=== PATIENT | male | born 1990 | race Caucasian/White ===

== ENCOUNTER 2018-05-15 19:51 | Inpatient (IN) | payer OTHER ==
[~2018-05-15] VITALS: Ht 172.7 cm; Wt 81.6 kg
[2018-05-15 19:53] VITALS: BP 128/73
[2018-05-15] MEDS ORDERED: HYDROmorphone PFS 2 MG/ML SYR IVP ONE ×3 (20:15→21:50)
[2018-05-15] MEDS ORDERED: diphenhydrAMINE 50 MG/ML VIAL IVP ONE ×3 (20:15→22:30)
[2018-05-15] MEDS ORDERED: NACL 0.9% 1,000 ML IV ONE (20:15)
--- NOTE | 2018-05-15 20:40 | NUR ---
PT BIBA FOR CHIEF C/O GENERALIZED PAIN ALL OVER. PT STATES, " IM HAVING A SICKLE CELL CRISIS." PT HAS PMH OF SICKLE CELL ANEMIA AND R HIP REPLACEMENT. PT AAOX4 FOLLOWING COMMANDS. PT NSR ON MONITOR 70-80S NO EDEMA NOTED. +2 PULSES UPPER AND LOWER EXTREMTIES. LUNGS CLEAR EVEN AND UNLABORED. ABD SOFT NON DISTENDED. PT VOIDING CLEAR YELLOW URINE. PT HAS STITICHES FROM PREVIOUS MEDIPORT TO R UPPER CHEST. PT HAS NEW MEDIPORT TO L UPPER CHEST NO S/S OF DISTRESS NOTED. WILL CONTINUE TO MONITOR.
--- NOTE | 2018-05-15 20:40 | NUR ---
PT ARRIVED VIA GURNEY FROM AMBULANCE TO ED BED 01
--- NOTE | 2018-05-15 20:45 | NUR ---
[facility] TO [facility] FOR IV MEDS. VSS. NO ACUTE DISTRESS NOTED
[2018-05-15 21:02] LABS: BASOPHILS % (AUTO) 0.4 % (0.0-2.0); EOSINOPHILS # (AUTO) 0.2 K/uL (0-0.4); EOSINOPHILS % (AUTO) 1.6 % (0.0-4.0); HEMATOCRIT 30.1 % (36-52); LYMPHOCYTES # (AUTO) 3.5 K/uL (2.0-11.5); LYMPHOCYTES % (AUTO) 30.7 % (20.5-51.1); MEAN CORPUSCULAR HEMOGLOBIN 40 pg (27-31); MEAN CORPUSCULAR HGB CONC 33 g/dL (33-37); MEAN CORPUSCULAR VOLUME 118.8 fL (80-94); MONOCYTES # (AUTO) 1.9 K/uL (0.8-1.0); MONOCYTES % (AUTO) 17.1 % (1.7-9.3); NEUTROPHILS # (AUTO) 5.7 K/uL (1.8-7.7); NEUTROPHILS % (AUTO) 50.2 % (42.2-75.2); PLATELET COUNT (AUTO) 415 K/uL (140-450); RED BLOOD CELL COUNT(AUTO) 2.53 MIL/uL (4.20-6.10); RED CELL DISTRIBUTION WIDTH 24.2 % (11.6-13.7); WHITE BLOOD COUNT (AUTO) 11.3 K/uL (4.8-10.8)
[2018-05-15] MEDS ORDERED: PIPERACILLIN/TAZOBACTAM 3.375 GM in DEXTROSE 5% 50 ML IV ONE (21:50)
[2018-05-15] MEDS ORDERED: PIPERACILLIN/TAZOBACTAM 3.375 GM VIAL IV ONE (22:07)
[2018-05-15] MEDS ORDERED: DEXT 5% / NACL 0.45% 1,000 ML IV SCH (22:18)
[2018-05-15] MEDS ORDERED: ACETAMINOPHEN 325 MG TAB PO PRN (22:20)
[2018-05-15] MEDS ORDERED: LORazepam 2 MG/ML VIAL IVP PRN (22:20)
[2018-05-15] MEDS ORDERED: ONDANSETRON 4 MG/2 ML VIAL IVP PRN (22:20)
[2018-05-15] MEDS ORDERED: HYDROcodone/APAP 5/325 MG 1 TAB TAB PO PRN (22:20)
[2018-05-15] MEDS ORDERED: HYDROmorphone 1 MG/ML AMP IVP PRN (22:20)
--- NOTE | 2018-05-15 22:45 | NUR ---
Patient will be admitted to care of DR. DOWNS . Admited to TELEMETRY. Will go to room 112A. Belongings list completed. LISAIE Report to SAADIA SÁNCHEZ.
--- NOTE | 2018-05-15 23:08 | NUR ---
RECEIVED FROM ER PER LUIS AWAKE BUT SLEEPY. DX. OF SICKLE CELL CRISIS. ABLE TO VERBALIZE NEEDS WELL. ROM X 4. INDEPENDENT. CLEAR SPEECH. SKIN INTACT. NO SOB. AFEBRILE. CARE PLANS FOR THE NIGHT DISCUSSED WITH HIM. CALL LIGHT WITH IN REACH. DENIES PAIN AT THIS TIME. MEDICATED IN ER PRIOR TRANSPORTING ON THE FLOOR. SKIN INTACT.
[2018-05-15] MEDS ORDERED: ACET-5636 PO (23:45)
[2018-05-15] MEDS ORDERED: VITA1TAB44 PO (23:46)
[2018-05-15] MEDS ORDERED: HYDR500C PO (23:47)
[2018-05-16 00:08] VITALS: BP 112/70
--- NOTE | 2018-05-16 00:27 | NUR ---
PT. AT THIS TIME IS SLEEPING. CALL LIGHT WITH IN REACH. ON CARDIAC TELEMETRY MONITORING.
[2018-05-16] MEDS: ALBUTEROL 0.083% 2.5 MG/3 ML NEBU INH SCH ×4 (01:00→18:35)
--- NOTE | 2018-05-16 01:52 | NUR ---
PATIENT REFUSED HHNTX AT THIS TIME. PT HAS NO SOB. BS ARE CLEAR. SATS ARE 100% ON ROOM AIR
[2018-05-16 03:16] VITALS: BP 113/65
[2018-05-16] MEDS: HYDROmorphone PFS 2 MG/ML SYR IVP PRN ×8 (03:34→23:23)
--- NOTE | 2018-05-16 06:37 | NUR ---
SLEEPING WELL THIS SHIFT. CALL LIGHT WITH IN REACH AT ALL TIMES. MEDICATED WITH PAIN RELIEVER PRN FOR SICKLE CELL DSE.
--- NOTE | 2018-05-16 07:10 | NUR ---
RECEIVED REPORT FROM THE SHIP CONSTRUCTION TEACHER NURSE AT BEDSIDE FOR CONTINUITY OF CARE. PT IS AWAKE AND ORIENTED. INTRODUCED MYSELF AND UPDATED THE BOARD. PT IS STATING HE NEEDS TO SPEAK WITH THE DR REGARDING HIS PAIN MANAGEMENT. PT IS AMBULATORY, SKIN INTACT. PORT A CATH ON CHEST. WILL CONTINUE TO MONITOR PT.
[2018-05-16 08:00] VITALS: BP 118/66
[2018-05-16 08:02] LABS: BARBITURATE, URINE NEG. ng/ml (NEG <=200); BENZODIAZEPINE, URINE NEG. ng/mL (NEG <=200); CANNABINOID, URINE NEG. ng/mL (NEG <=50); COCAINE, URINE NEG. ng/mL (NEG <=300); OPIATE, URINE NEG. ng/mL (NEG <=2000); PHENCYCLIDINE SCREEN,URINE NEG. ng/mL (NEG <=25)
--- NOTE | 2018-05-16 08:17 | NUR ---
V/S WITHIN NORMAL RANGE. PAIN LEVEL AT 8/10. HE WISHES TO SPEAK TO THE DR. EXPLAINED TO PT THAT THE MD COMES IN UNSCHEDULED, BUT SHE WILL BE IN. PT VERBALIZED UNDERSTANDING. HE IS EATING BREAKFAST. NO SIGNS OF DISTRESS. WILL CONTINUE TO MONITOR PT.
[2018-05-16 08:30] LABS: APPEARANCE,URINE CLEAR (CLEAR); BILIRUBIN,URINE NEGATIVE (NEGATIVE); BLOOD, URINE NEGATIVE (NEGATIVE); COLOR,URINE YELLOW (YELLOW); LEUKOCYTE ESTERASE ,URINE NEGATIVE (NEGATIVE); NITRITE, URINE NEGATIVE (NEGATIVE); PH,URINE 6.5 (5.0-9.0); UGLUCOSE NEGATIVE (NEGATIVE)
[2018-05-16 08:31] LABS: RBC,URINE 0-5 (RARE) /HPF (0-5); WBC,URINE 0-5 (RARE) /HPF (0-5)
[2018-05-16 08:34] LABS: MAGNESIUM 1.9 mg/dL (1.8-2.4)
--- NOTE | 2018-05-16 08:40 | NUR ---
PATIENT HAS BEEN SCREENED AND CATEGORIZED LOW NUTRITION RISK. PATIENT WILL BE SEEN WITHIN 7 DAYS OF ADMISSION. 05/22/[address]
--- NOTE | 2018-05-16 08:42 | NUR ---
ADMINISTERED DILAUDID REQUESTED. PT TOLERATED WELL. PER PT, PT IS ALLERGIC TO ATIVAN. ADDED TO HIS ALLERGY LIST. D/C'D ZOFRAN AND ATIVAN FROM MED LIST. NOTIFIED PHARMACY. PHARMACIST AWARE. STILL ASKING ABOUT MD. WILL CONTINUE TO MONITOR PT.
[2018-05-16 10:02] LABS: ANION GAP 13.4 (8-16); CARBON DIOXIDE 26.8 mmol/L (21-32); CREATININE 0.7 mg/dL (0.7-1.3); POTASSIUM 4.2 mmol/L (3.5-5.1)
--- NOTE | 2018-05-16 10:17 | NUR ---
CM NOTE PER [employer]UB MEMBERSHIP SALES AGENT FELISA, REVIEWS SHOULD BE SENT TO [facility]OTH [facility] AND [facility]. PER CM LAISHA OF [facility] PH# [phone] EXT [phone], THEY ALSO WANT REVIEWS FAXED TO THEM. INITIAL REVIEW, ADMIT ORDER, H&P, IMAGING, LABS, MEDICATION LIST FAXED TO [facility] [phone] PH# [phone] ROSY BECKER EXT [phone]. INITIAL REVIEW AND H&P FAXED TO [facility] [phone] PH# [phone] CM LAISHA EXT *[phone].
[2018-05-16] MEDS ORDERED: ENOXAPARIN 40 MG/0.4 ML SYR SUBQ SCH (10:31)
--- NOTE | 2018-05-16 11:20 | NUR ---
PAGED PULMO GROUP TO CLARIFY WHO IS THE MD FOR THIS PT, DR DOWNS OR TRINA. PAGED DR DOWNS.
[2018-05-16] MEDS: NACL 0.9% 1,000 ML IV SCH ×2 (11:24→18:39)
--- NOTE | 2018-05-16 11:25 | NUR ---
DR DOWNS CALLED AND GAVE ORDERS FOR FLUIDS. WILL BE IN TO SEE PT.
--- NOTE | 2018-05-16 11:27 | NUR ---
ADMINISTERED LOVENOX AND IVF. PT TOLERATED WELL. ASKED ABOUT MD. NOTIFIED PT THAT I RECEIVED FLUID ORDERS BUT NO WORD ON WHAT TIME MD WILL BE HERE.
[2018-05-16 12:00] VITALS: BP 106/58
--- NOTE | 2018-05-16 13:00 | NUR ---
DR DOWNS IS HERE TO SEE PT. PER ORDER, CHANGE DILAUDID TO 1MG Q 2HRS. NO BENADRYL D/T LOW HR AND LOW BP.
--- NOTE | 2018-05-16 14:06 | NUR ---
PT WOULD LIKE TO CHANGE DRSLola NOTIFIED CHARGE NURSETERENCE. PT WOULD LIKE TO TALK TO CHARGE NURSE. TERENCE NOTIFLUDY.
--- NOTE | 2018-05-16 14:36 | NUR ---
ADMINISTERED 1MG OF DILAUDID. TOLERATED WELL. WILL CONTINUE TO MONITOR PT.
--- NOTE | 2018-05-16 15:00 | NUR ---
TERENCE, CHARGE NURSE SPOKE TO PT RE SWITCHING MD. PT WILL NEED TO SPEAK TO DR DOWNS FOR RELEASE. CALLED AND PAGED DR DOWNS. AWAITING HER CALL.
[2018-05-16 16:00] VITALS: BP 138/45
--- NOTE | 2018-05-16 16:35 | NUR ---
VS WITHIN NORMAL RANGE. ADMINISTERED DILAUDID REQUESTED AND ORDERED. REQUESTED A TURKEY SANDWICH W/ MUSTARD. WILL CONTINUE TO MONITOR PT.
--- NOTE | 2018-05-16 18:35 | NUR ---
PATIENT REFUSED HHN TRATMENT, STATED HE DOES NOT NEED THEM AND NO SIGNS OF SOB
--- NOTE | 2018-05-16 19:05 | NUR ---
ENDORSED PT TO THE TREASURER NURSE AT BEDSIDE FOR CONTINUITY OF CARE. PT IS IN STABLE CONDITION.
--- NOTE | 2018-05-16 19:05 | NUR ---
RECEIVED REPORT FROM PRISCILLA SÁNCHEZ DAYSHIFT NURSE AT BEDSIDE FOR CONTINUITY OF CARE, PT IN STABLE CONDITION.
[2018-05-16 20:00] VITALS: BP 107/62
--- NOTE | 2018-05-16 20:00 | NUR ---
PT SITTING UP IN LOW BED SIDE RAILS UP X2 , ALEXANDR CATH LOCATED ON LEFT UPPER CHEST FLUSHED PATENT AND RUNNING N/S AT 125MLS/HR. V/S FOLLOWS T 98.7 P 76 R 18 B/P 107/62 02 %94.
--- NOTE | 2018-05-16 21:00 | NUR ---
PT IN BED WITH C/O OF 9/10 STABBING GENERALIZED PAIN, GIVEN PRN DILAUDID IVP.
--- NOTE | 2018-05-16 22:00 | NUR ---
POSITIVE EFFECT OF DILAUDID NOTED PT RESTING COMFORTABLY IN BED. PORT-A-CATH FLUSHED PATENT N/S RUNNING AT 125. CALL KELLY IN EACH. PT URINATED OVER 1000MLS OF DANIELA URINE.
--- NOTE | 2018-05-16 23:30 | NUR ---
PT C/O 02/24 STABBING GENERALIZED PAIN FROM DX OF SICKLE CELL. PT GIVEN PRN DILAUDID IVP.
[2018-05-17] VITALS: BP 110/73
[2018-05-17] MEDS: ALBUTEROL 0.083% 2.5 MG/3 ML NEBU INH SCH ×4 (00:14→19:00)
--- NOTE | 2018-05-17 00:14 | NUR ---
PATIENT REFUSED HHN TREATMENT. NO RESP. DISTRESS OR SOB NOTED
--- NOTE | 2018-05-17 01:00 | NUR ---
POSITIVE EFFECT OF DIALUDID PRN PT RESTING IN BED NO S/S OF PAIN OR DISTRESS NOTED. BED LOW SIDE RAILS UP X2 AND CALL KELLY IN REACH.
[2018-05-17] MEDS: HYDROmorphone PFS 2 MG/ML SYR IVP PRN ×4 (02:12→11:52)
[2018-05-17] MEDS: NACL 0.9% 1,000 ML IV SCH ×3 (02:24→20:22)
--- NOTE | 2018-05-17 02:30 | NUR ---
PT AWOKEN BY STABBING PAIN FROM SICKLE SELL ANEMIA, GIVEN PRN DILAUDID IVP. N/S FLUIDS REPLACED. PT HAD VOIDED ANOTHER 750MLS.
[2018-05-17 04:00] VITALS: BP 105/63
--- NOTE | 2018-05-17 07:10 | NUR ---
GAVE REPORT AT BEDSIDE FOR CONTINUITY OF CARE, PT IN STABLE CONDITION.
--- NOTE | 2018-05-17 07:11 | NUR ---
RECEIVED REPORT FROM BRIDGE CREW MEMBER NURSE AT BEDSIDE FOR CONTINUITY OF CARE. PT IS AWAKE AND ORIENTED. EXTERNAL AUDITOR WAS HERE TO DRAW BLOOD. PT'S V/S WITHIN NORMAL LIMITS. REINTRODUCED MYSELF AND UPDATED THE BOARD. PT C/O PAIN. WILL BE BACK LATER TO GIVE, NOT TIME YET.
--- NOTE | 2018-05-17 07:24 | NUR ---
PATIENT REFUSED PROVENTIL Q6 TX. PATIENT RESTING COMFORTABLY AND VERBALIZED FEELING NO SOB OR DISTRESS. VITALS STABLE: O2 SAT 98% ON RA, PULSE 64, DIMINISHED BREATH SOUNDS BUT CLEAR OVER RUL.
--- NOTE | 2018-05-17 07:55 | NUR ---
ADMINISTERED LOVENOX AND DILAUDID. PT TOLERATED WELL. BREAKFAST IS HERE. WILL CONTINUE TO MONITOR PT.
[2018-05-17] MEDS: ENOXAPARIN 40 MG/0.4 ML SYR SUBQ SCH (07:56)
[2018-05-17 08:00] VITALS: BP 97/45
[2018-05-17 08:15] LABS: BASOPHILS % (AUTO) 0.3 % (0.0-2.0); EOSINOPHILS # (AUTO) 0.2 K/uL (0-0.4); EOSINOPHILS % (AUTO) 2.5 % (0.0-4.0); HEMATOCRIT 30.8 % (36-52); HEMOGLOBIN 10.7 g/dL (12.0-18.0); LYMPHOCYTES # (AUTO) 1.9 K/uL (2.0-11.5); LYMPHOCYTES % (AUTO) 27.1 % (20.5-51.1); MEAN CORPUSCULAR HEMOGLOBIN 41 pg (27-31); MEAN CORPUSCULAR HGB CONC 35 g/dL (33-37); MEAN CORPUSCULAR VOLUME 117.7 fL (80-94); MONOCYTES # (AUTO) 1.5 K/uL (0.8-1.0); NEUTROPHILS # (AUTO) 3.4 K/uL (1.8-7.7); NEUTROPHILS % (AUTO) 48.1 % (42.2-75.2); RED BLOOD CELL COUNT(AUTO) 2.61 MIL/uL (4.20-6.10); RED CELL DISTRIBUTION WIDTH 22.9 % (11.6-13.7)
[2018-05-17 08:21] LABS: PLATELET COUNT (AUTO) 392 K/uL (140-450)
[2018-05-17 08:35] LABS: ALBUMIN 3.8 g/dL (3.4-5.0); CARBON DIOXIDE 29.1 mmol/L (21-32); CREATININE 0.6 mg/dL (0.7-1.3); POTASSIUM 4.1 mmol/L (3.5-5.1); TOTAL BILIRUBIN 2.5 mg/dL (0.0-1.0)
--- NOTE | 2018-05-17 08:55 | NUR ---
CM NOTE CONCURRENT REVIEW FAXED TO [facility] [phone] PH# [phone] CM ROSITA EXT [phone] AND TO [facility] [phone] PH# [phone] CM LAISHA EXT *[phone]. PATIENT HAS BEEN SET UP FOR OUTPATIENT FF UP APPOINTMENT WITH PCP DR. GUERLINE ARGUELLO AT THE CLINIC WHERE PATIENT GOES TO IN [address] [place] [address] PH# [phone]. PRISCILLA SÁNCHEZ AWARE.
--- NOTE | 2018-05-17 10:32 | NUR ---
PT IS SLEEPING. NO SIGNS OF DISTRESS. WILL CONTINUE TO CONTINUE TO MONITOR.
--- NOTE | 2018-05-17 11:55 | NUR ---
PT FINALLY AWAKE D/T V/S. PER PT, HE DIDN'T SLEEP WELL LAST NIGHT. ADMINISTERED DILAUDID AND NEW IVF. WILL CONTINUE TO MONITOR PT.
[2018-05-17 12:00] VITALS: BP 123/47
--- NOTE | 2018-05-17 12:20 | NUR ---
PATIENT REFUSED TX. VERBALIZED FEELING NO SOB. VITALS: 98% ON RA, PULSE 63, RATE 18, CLEAR BREATH SOUNDS.
--- NOTE | 2018-05-17 12:41 | NUR ---
DR DOWNS IS HERE TO SEE PT. PER , PT NEEDS TO AMBULATE. P/T ORDER IN PLACE. CONTINUE WITH DILAUDID 1MG Q2HR. ALSO ORDERED XRAYS BACK AND PELVIS. WILL CONTINUE TO MONITOR PT.
[2018-05-17] MEDS ORDERED: oxyCODONE/APAP 5/325 MG 1 TAB TAB PO PRN (12:45)
--- NOTE | 2018-05-17 13:20 | NUR ---
PER CHARGE NURSE, P/T HERE TO ASSESS PT. PT REFUSED TO GET UP W/ P/T WITHOUT PAIN MEDS. PAIN MEDS NOT DUE OF YET. PT TOLD P/T TO COME BACK. RADIOLOGY IS HERE TO TAKE PT FOR XRAYS. PT REFUSED. TOLD THEM TO COME BACK LATER AFTER HE HAD HIS PAIN MED.
--- NOTE | 2018-05-17 14:02 | NUR ---
ADMINISTERED DILAUDID. NOTIFIED PT THAT P/T IS WAITING AND RADIOLOGY WILL BE HERE HERE IN 10 MIN. PT VERBALIZED UNDERSTANDING. P/T WAITING BY THE DOOR.
--- NOTE | 2018-05-17 14:15 | NUR ---
P/T EVALUATION DONE. RADIOLOGY TOOK PT IN WHEELCHAIR FOR XRAY.
[2018-05-17 16:00] VITALS: BP 115/55
[2018-05-17] MEDS: HYDROmorphone 1 MG/ML AMP IVP PRN ×4 (16:15→22:39)
--- NOTE | 2018-05-17 16:17 | NUR ---
OFFERED THE PERCOCET FIRST BEFORE THE DILAUDID. PER PT, IT ONLY WORKS FOR MILD PAIN. PT NEEDS THE DILAUDID. PAIN 02/24. ADMINISTERED DILAUDID. PT TOLERATED WELL. WILL CONTINUED TO MONITOR PT.
--- NOTE | 2018-05-17 18:15 | NUR ---
ADMINISTERED DILAUDID REQUESTED. PAIN LEVEL AT 8/10. WILL CONTINUE TO MONITOR PT.
--- NOTE | 2018-05-17 19:20 | NUR ---
ENDORSED PT TO THE DISPATCH OFFICER NURSE AT BEDSIDE FOR CONTINUITY OF CARE. PT IS IN STABLE CONDITION.
--- NOTE | 2018-05-17 19:21 | NUR ---
REPORT RECEIVED FROM AM NURSE AT BEDSIDE. PT IN STABLE CONDITION. AAOX4. NO COMPLAINTS OF PAIN. NO SOB. INTRODUCED SELF TO PT. BOARD UPDATED. IV SITE L CHEST MEDIPORT RUNNING NS@125ML/HR PATENT AND INTACT. SKIN WARM, DRY, AND INTACT WITH NO OPEN WOUNDS. PT AMBULATORY. BED LOCKED IN LOW POSITION. CALL KELLY WITHIN REACH. SAFETY PRECAUTIONS IN PLACE.
[2018-05-17 20:00] VITALS: BP 118/39
--- NOTE | 2018-05-17 20:20 | NUR ---
DILAUDID GIVEN FOR 10/10 PAIN. PT TOLERATED WELL. KENALOG REFUSED BY PT.
[2018-05-17] MEDS ORDERED: TRIAMCINOLONE 0.5% TP SCH (21:00)
--- NOTE | 2018-05-17 22:30 | NUR ---
ORDERS FOR CT PELVIS W/WO CONTRAST. PT HAS NO PERIPHERAL IV BUT HAS A L CHEST MEDIPORT. ATTEMPTED TO INSERT AN IV BUT PT STATES THAT HIS MEDIPORT CAN HANDLE CONTRAST.
--- NOTE | 2018-05-17 22:35 | NUR ---
RADIOLOGY NOTIFIED OF L CHEST MEDIPORT AND SAID THAT PT'S MEDIPORT CANNOT HANDLE CONTRAST DYE.
--- NOTE | 2018-05-17 22:39 | NUR ---
DILAUDID GIVEN FOR 10/10 PAIN. PT TOLERATED WELL.
--- NOTE | 2018-05-17 22:45 | NUR ---
NOTIFIED ABOUT PT REFUSAL TO HAVE IV INSERTED. NEW ORDERS CHANGED FROM CT PELVIS W/WO CONTRAST TO CT PELVIS WO CONTRAST.
--- NOTE | 2018-05-17 23:00 | NUR ---
NEW ORDER PUT IN TO CT PELVIS WITHOUT CONTRAST. TORB FROM DR DOWNS TO ALSO CHANGE PT'S DILAUDID ORDER FROM 1MG IVP Q2H PRN FOR SEVERE PAIN TO 1MG Q4H IVP PRN FOR SEVERE PAIN.
[2018-05-18] VITALS: BP 91/47
--- NOTE | 2018-05-18 | NUR ---
DR DOWNS NOTIFIED THAT PT REFUSED CT PELVIS WITHOUT CONTRAST. PT SAYS HE DOES NOT NEED IT.
--- NOTE | 2018-05-18 00:30 | NUR ---
PT REFUSED CT PELVIS WITHOUT CONTRAST. PT STATED HE DOES NOT NEED OR WANT THE CT.
[2018-05-18] MEDS: ALBUTEROL 0.083% 2.5 MG/3 ML NEBU INH SCH ×3 (01:00→13:00)
[2018-05-18] MEDS: HYDROmorphone 1 MG/ML AMP IVP PRN ×3 (02:17→12:09)
--- NOTE | 2018-05-18 02:17 | NUR ---
DILAUDID 1MG GIVEN FOR 10/10 PAIN. PT TOLERATED WELL.
[2018-05-18 04:00] VITALS: BP 89/45
[2018-05-18] MEDS: NACL 0.9% 1,000 ML IV SCH ×3 (04:30→12:12)
--- NOTE | 2018-05-18 04:50 | NUR ---
PT SLEEPING COMFORTABLY. NO S/S OF DISTRESS NOTED. WILL CONTINUE TO MONITOR.
--- NOTE | 2018-05-18 05:44 | NUR ---
AMARYL 1/2 TAB GIVEN PO. BS 62. NO INSULIN COVERAGE NEEDED. ORANGE JUICE GIVEN FOR DECREASED BLOOD GLUCOSE. Addendum: 05/18/18 at 0622 by Dequan Cordon RN CHARTED ON WRONG PATIENT.
--- NOTE | 2018-05-18 06:00 | NUR ---
PT REFUSED MORNING LAB DRAWS.
--- NOTE | 2018-05-18 07:13 | NUR ---
PT REFUSED HHN TX. NO SOB OR DISTRESS NOTED. PT ON ROOM AIR WITH SPO2 OF 98%. GONZALO SHARPE AT BEDSIDE. WILL CONTINUE TO MONITOR.
--- NOTE | 2018-05-18 07:15 | NUR ---
REPORT GIVEN TO AM NURSE AT BEDSIDE. PT IN STABLE CONDITION.
--- NOTE | 2018-05-18 07:20 | NUR ---
RECEIVED BEDSIDE REPORT FROM SHEET METAL ERECTOR RN. PT IN STABLE CONDITION, SLEEPING IN BED, AROUSABLE BY VOICE. AAOX4. COMPLAINING OF 8/10 BACK PAIN, WILL ADMIN PAIN MEDICATION PER MD ORDERS. NO SOB, SATURATING AT 97% RA. SKIN INTACT. PT IS AMBULATORY. LUNGS CTA. HEART RHYTHM REGULAR. IV SITE LT CHEST MEDIPORT RUNNING NS@125ML/HR PATENT AND INTACT. UPDATED BOARD, INTRODUCED SELF, AND EXPLAINED POC FOR TODAY. PT VERBALIZED COMPLETE UNDERSTANDING. ALL SAFETY PRECAUTIONS IN PLACE, WILL CONTINUE TO MONITOR.
[2018-05-18 08:00] VITALS: BP 106/57
[2018-05-18] MEDS: ENOXAPARIN 40 MG/0.4 ML SYR SUBQ SCH (08:11)
--- NOTE | 2018-05-18 08:30 | NUR ---
PT REFUSED LIDOCAINE PATCH, SAYS "I DON'T NEED IT". EXPLAINED INDICATION FOR LIDOCAINE PATCH, BUT PT CONTINUES TO REFUSE.
[2018-05-18] MEDS ORDERED: LIDOCAINE 5% 1 EA PATCH TP SCH (09:00)
--- NOTE | 2018-05-18 10:06 | NUR ---
PT COMPLAINING OF 8/10 PAIN. ADMINISTERED PERCOCET PER MD ORDERS.
[2018-05-18 12:00] VITALS: BP 106/62
--- NOTE | 2018-05-18 12:09 | NUR ---
PT COMPLAINING OF 10/10 PAIN. ADMINISTERED DILAUDID IVP PER MD ORDERS.
--- NOTE | 2018-05-18 14:15 | NUR ---
PT TOLD DR. DOWNS THAT THE CURRENT PAIN REGIMEN IS NOT EFFECTIVE IN CONTROLLING PAIN. DR. DOWNS EXPLAINED TO PT WHY WE CAN NOT INCREASE THE DOSE/FREQUENCY OF PAIN MEDICATION DUE TO SAFETY CONCERNS RELATING TO PT'S HR AND BP. PT VERBALIZED COMPLETE UNDERSTANDING AND STATES HE WANTS TO LEAVE. DR. DOWNS ADVISED AGAINST LEAVING AMA AND EXPLAINED THE RISKS OF DOING SO. PT VERBALIZED COMPLETE UNDERSTANDING BUT STATES HE WISHES TO SEEK CARE ELSEWHERE. AMA SIGNED BY BOTH PT AND DR. DOWNS AND PLACED IN CHART.
--- NOTE | 2018-05-18 14:45 | NUR ---
REMOVED NEEDLE FROM MEDIPORT. NEEDLE INTACT. NO BLEEDING FROM SITE. SITE COVERED WITH STERILE GAUZE AND TRANSPARENT DRESSING. ID BANDS REMOVED. PT DRESSED. ALL BELONGINGS ARE WITH PATIENT. WALKED PT TO MAIN ENTRANCE. GAIT EVEN AND STEADY WITHOUT ASSIST. PT IN STABLE CONDITION.
== END 2018-05-18 14:45 | disposition left against medical advice (07) | DRG 663 ==
LOC: MED 19:51 → MTU 22:23
PROVIDERS: ADMIT Hospitalist; ATTEND Hospitalist
DX: D57.1 Sickle-cell disease without crisis (principal); I95.9 Hypotension, unspecified; G89.4 Chronic pain syndrome; Z96.649 Presence of unspecified artificial hip joint; T40.2X5A Adverse effect of other opioids, initial encounter; M54.9 Dorsalgia, unspecified; Z53.21 Procedure and treatment not carried out due to patient leaving prior to being seen by health care provider; Z88.5 Allergy status to narcotic agent; Y92.89 Other specified places as the place of occurrence of the external cause; Z91.19 Patient's noncompliance with other medical treatment and regimen
CPT/HCPCS: 36415; 71046; 72100; 72170; 80048; 80053; 80305; 81001; 83735; 84100; 85025; 87040; 87081; 87804; 96365; 96375; 96376; 97116; 99285; J1170; J1200; J1650; J2543; J7030; J7613

== ENCOUNTER 2018-08-24 21:07 | Emergency (ER) | payer OTHER ==
[~2018-08-24] VITALS: Ht 172.7 cm; Wt 81.6 kg
[~2018-08-24 21:07] MED LIST: ACET-5636 PO; HYDR500C PO; VITA1TAB44 PO
[2018-08-24 21:26] VITALS: BP 123/79
--- NOTE | 2018-08-24 21:28 | NUR ---
TO LOBBY A/W BED, MARY MAYA NOTED
--- NOTE | 2018-08-24 22:26 | NUR ---
PT AMBULATED TO ER BED 01
--- NOTE | 2018-08-24 22:37 | NUR ---
PT REPORTS SICKLE CELL CRISES STARTING 2 HOURS AGO. PT REPORTS SHARP STABING PAIN AT 8/10 IN LOWER BACK AND LEGS. PT STATES HE WAS RELAXING ON THE COUCH WHEN HE FELT PAIN COME ON SUDDENLY. ER MD TO SEE PT. SIDE RAIL UP X1, BED IN LOWEST POSITION, HAB ELEVATED. WILL CONTINUE TO MONITOR. MEDHX: SICKLE CELL RX; FOLIC ACID, HYDROXYUREA
--- NOTE | 2018-08-25 | NUR ---
PT IS RESTING WITH EYES CLOSED IN BED. VSS. AFTER WAKING UP PT HE STATES HIS PAIN IS AT 8/10.
[2018-08-25] MEDS ORDERED: NACL 0.9% 1,000 ML IV ONE (00:35)
[2018-08-25] MEDS ORDERED: fentaNYL 0.05 MG/ML VIAL IVP ONE (00:35)
--- NOTE | 2018-08-25 01:00 | NUR ---
PT EXPERIENCING INFILTRATION WITH PORTICATH. PT REPORTS PAIN AND DISCOMFORT AROUND PORT A CATH, VISIBLE EDEMA, SKIN IS TIGHT. STOPPED NS, NOTIFIED CHARGE NURSE ABRAHAM.
--- NOTE | 2018-08-25 01:10 | NUR ---
CHARGE NURSE ABRAHAM DISCONNECTED PORT A CATH AND RE-ACCESSED PORT A CATH WITH NEW LUNDBERG NEEDLE USING STERILE TECHNIQUE, PORT FLUSHES EASILY, NS RUNNING, PT DENIES ANY PAIN OR TENDERNESS WITH PORT A CATH. Addendum: 08/25/18 at 0247 by SAI KEMI KATZIED
--- NOTE | 2018-08-25 02:00 | NUR ---
Note eric in EDM - 08/25/18 at 0244 by SAI PT EXPERIENCING INFILTRATION WITH PORTICATH. PT REPORTS PAIN AND DISCOMFORT AROUND PORT A CATH, VISIBLE EDEMA, SKIN IS TIGHT. STOPPED NS, NOTIFIED CHARGE NURSE ABRAHAM.
[2018-08-25 02:30] VITALS: BP 119/65
== END 2018-08-25 02:30 | disposition home or self-care (01) ==
LOC: MED 21:07
DX: D57.1 Sickle-cell disease without crisis (principal); Z88.5 Allergy status to narcotic agent; Z88.8 Allergy status to other drugs, medicaments and biological substances; Z79.891 Long term (current) use of opiate analgesic; Z79.899 Other long term (current) drug therapy; Z96.649 Presence of unspecified artificial hip joint
CPT/HCPCS: 36415; 71045; 87804; 96374; 99284; J3010; J7030

== ENCOUNTER 2019-08-04 07:41 | Emergency (ER) | payer OTHER ==
[~2019-08-04] VITALS: Ht 172.7 cm; Wt 77.1 kg
[~2019-08-04 07:41] MED LIST changes: +FOLI1TAB90 PO; -VITA1TAB44 PO
[2019-08-04 07:49] VITALS: BP 111/34
--- NOTE | 2019-08-04 07:49 | NUR ---
SUDDEN ONSET OF LOWER BACK PAIN RADIATING RLE X LAST NIGHT DENIES INJURY; AMBULATORY WITH STEADY GAIT
[2019-08-04] MEDS ORDERED: fentaNYL 0.05 MG/ML VIAL IVP ONE (08:30)
[2019-08-04] MEDS ORDERED: NACL 0.9% 1,000 ML IV ONE (08:30)
--- NOTE | 2019-08-04 08:36 | NUR ---
PT UP TO RESTROOM
--- NOTE | 2019-08-04 08:45 | NUR ---
PT SEEN AMBULATING OUT OF ER WITH STEADY GAIT---NO REASON FOR LEAVING GIVEN
== END 2019-08-04 08:45 | disposition left against medical advice (07) ==
LOC: MED 07:41
DX: M54.5 Low back pain (principal); R03.0 Elevated blood-pressure reading, without diagnosis of hypertension; D57.00 Hb-SS disease with crisis, unspecified; Z79.899 Other long term (current) drug therapy; Z88.5 Allergy status to narcotic agent; Z88.8 Allergy status to other drugs, medicaments and biological substances
CPT/HCPCS: 99281

== ENCOUNTER 2019-09-10 10:41 | Emergency (ER) | payer OTHER ==
[~2019-09-10] VITALS: Ht 172.7 cm; Wt 77.1 kg
[2019-09-10 10:53] VITALS: BP 112/59
--- NOTE | 2019-09-10 10:56 | NUR ---
WAIT AT LOBBY
--- NOTE | 2019-09-10 11:43 | NUR ---
PT AMBULATED TO ER BED 3
--- NOTE | 2019-09-10 11:50 | NUR ---
C/O LOWER BACK , LEG & ARM PAIN X TODAY MED HX: SCD, HIP REPLACEMENT. DENIES N/V/D; SKIN IS PINK/WARM/DRY; AAOX4 . LUNGS CLEAR BL; HR EVEN AND REGULAR; PT DENIES ANY FEVER, CP, SOB, OR COUGH AT THIS TIME; PATIENT STATES PAIN OF 9/10 AT THIS TIME; VSS; PATIENT POSITIONED FOR COMFORT; HOB ELEVATED; BEDRAILS UP X2; BED DOWN. ER MD MADE AWARE OF PT STATUS.
[2019-09-10] MEDS ORDERED: KETOROLAC 60 MG/2 ML VIAL IM ONE (12:00)
--- NOTE | 2019-09-10 12:09 | NUR ---
PT REFUSED TORADOL. PT STATED HE WANTS DILAUDID.
[2019-09-10] MEDS ORDERED: fentaNYL 0.05 MG/ML VIAL IVP ONE (12:45)
--- NOTE | 2019-09-10 13:22 | NUR ---
Kraig reyes in EDM - 09/10/19 at 1626 by MEDRJJ EPATIENT ELOPED FROM FACILITY. DISCHARGE INSTRUCTIONS NOT GIVEN TO PATIENT. DR. MORIN NOTIFIED.
--- NOTE | 2019-09-10 13:22 | NUR ---
Note nataliajose in EDM - 09/10/19 at 1629 by PINAJJ Patient discharged with v/s stable. Written and verbal after care instructions given and explained. Patient alert, oriented and verbalized understanding of instructions. Ambulatory with steady gait. All questions addressed prior to discharge. ID band removed. Patient advised to follow up with PMD. Rx NO given. Patient educated on indication of medication including possible reaction and side effects. Opportunity to ask questions provided and answered.
--- NOTE | 2019-09-10 13:24 | NUR ---
EPATIENT ELOPED FROM FACILITY. DISCHARGE INSTRUCTIONS NOT GIVEN TO PATIENT. DR. MORIN NOTIFIED.
== END 2019-09-10 13:22 | disposition home or self-care (01) ==
LOC: MED 10:41
DX: M54.5 Low back pain (principal); R07.9 Chest pain, unspecified; M79.603 Pain in arm, unspecified; Z98.890 Other specified postprocedural states; Z79.899 Other long term (current) drug therapy; Z88.5 Allergy status to narcotic agent; Z88.8 Allergy status to other drugs, medicaments and biological substances
CPT/HCPCS: 81002; 99282; J1885